=== PATIENT | female | born 1955 | race Caucasian/White ===

== ENCOUNTER → 2016-09-11 06:36 | Day surgery (SDC) | payer OTHER ==
[~2016-09-11 06:36] MED LIST: Acetaminophen TAB* 325 MG ONE; Acetaminophen TAB* 325 MG PO PRN; Buffered Lidocaine 1% SYRIN* 3 ML/SYR SYRINGE INTRADERM ONE; Dexamethasone IV* 4 MG/ML 1 ML (4 MG) ONE; DiMENhydriNATE IV* 50 MG/ML VIAL IV PUSH PRN; Famotidine IV* 10 MG/ML 2 ML (20 mg) IV ONE; Famotidine IV* 10 MG/ML 2 ML (20 mg) ONE; HYDROmorphone* 1 MG/ML 1 ML SYR IV PRN; KETAMINE HCL* 50 MG/ML 10 ML VIAL ONE; Lidocaine 1% INJ* 10 MG/ML 30 ML SDV ONE; Lidocaine 2% PF* 5 ML VIAL ONE; Lidocaine 2.5%/Prilocain 2.5%* 5 GM TUBE ONE; Midazolam* 1 MG/ML 2 ML VIAL (2 MG) ONE; Ondansetron INJ* 2 MG/ML VIAL IV PRN; PROCHLORPERAZINE INJ 5 MG/ML 2 ML VIAL IV PRN; Propofol* 10 MG/ML 20 ML BTL IV PUSH ONE; ceFAZolin 2 GM PREMIX(*) 2 GM/50 ML BAG IVPB ONE; fentaNYL* 50 MCG/ML 2 ML VIAL (100 MCG VIAL) ONE
--- NOTE | 2016-09-11 09:06 | RAD ---
INDICATION: PowerPort catheter placement COMPARISON: None TECHNIQUE: An AP portable view obtained at 0845 hours is submitted. FINDINGS: Bones/Soft Tissues: There are no acute bony findings. There is a right-sided PowerPort catheter terminating in the superior vena cava. There is no pneumothorax Cardiomediastinal: The cardiomediastinal silhouette is normal. Lungs: There are no infiltrates. Pleura: There are no pleural effusions. Other: None IMPRESSION: RIGHT-SIDED CENTRAL TRANSCATHETER IN EXPECTED POSITION. NO PNEUMOTHORAX.
--- NOTE | 2016-09-11 09:07 | RAD ---
INDICATION: PowerPort catheter placement COMPARISON: None FINDINGS: 5.2 seconds of fluoroscopy were provided for the surgical department. Fluoroscopic spot imaging of the chest were obtained for operative control and show a normal course of the right-sided central venous catheter catheter. A follow-up chest x-ray is pending . CPT II Codes: 6045F (fluoro time doc)
[2016-09-11 09:25] VITALS: BP 126/74
--- NOTE | 2016-09-12 07:07 | OP ---
DATE OF OPERATION: 09/11/16 - [facility] DATE OF : 57 SURGEON: Joe Blank MD FORESTRY AND WILDLIFE MANAGER: None. ANESTHESIOLOGIST: Dr. Crowe. ANESTHESIA: LMAC anesthesia. PRE-OP DIAGNOSIS: Carcinoma of the breast. POST-OP DIAGNOSIS: Carcinoma of the breast. OPERATIVE PROCEDURE: Placement of right subclavian 8-Bel[place]ian PowerPort. DESCRIPTION OF PROCEDURE: The patient was supine on the operative table. After adequate intravenous sedation, compression stockings, Capo Hugger warmer, and intravenous antibiotics, the right chest and neck region were prepped with antiseptic and draped in a sterile fashion. Local infiltrative anesthesia was administered and approximately 3-cm incision was created on the right subclavian region. Inferior pocket was created. Subclavian venipuncture was carried out without difficulty. Guidewire was passed under fluoroscopic guidance. Catheter passed through the peel-away introducer, measured, and cut at 23 cm. It was attached to the port, which was sutured in the pocket and the pocket was then closed with 3-0 and 5-0 Polysorb followed by Steri-Strips. The port was accessed. There was good blood return. It was flushed with saline solution and heparinized solution and then covered with Tegaderm dressing. She tolerated the procedure well and was brought to Recovery in good condition. No complications. No drains. No pathologic specimens. Sponge and instrument counts correct. Estimated blood loss 10 mL. CC: Dr. Joe Blank; Dr. Maia Kelly* [id number]/[facility] #: [id number] MTDD
== END | disposition home or self-care (01) ==
LOC: OR 06:36
PROVIDERS: ATTEND Surgery
DX: C50.912 Malignant neoplasm of unspecified site of left female breast (principal)
CPT/HCPCS: 71010; 76000; A9270-GY; J0690; J1100; J1642; J2001; J2250; J2704; J3010

== ENCOUNTER 2017-01-11 09:41 | Observation (INO) | payer OTHER ==
--- NOTE | 2017-01-09 21:56 | HP ---
CC: Maia Kelly MD; Robert Cornell MD; Dr. Looney, [facility], [place], [place] * ADMISSION HISTORY AND PHYSICAL: DATE OF ADMISSION: 01/11/17 ATTENDING SURGEON: Joe Blank MD * (DICTATED BY TEE BANKS) CHIEF COMPLAINT: Left breast cancer. HISTORY OF PRESENT ILLNESS: This is a 61-year-old female with hypertension and past history of asthma who first noted discoloration that she attributed to bruising of the left breast in May 2016. This did not resolve or improve in succeeding months and she brought it to the attention of her new PCP in [place], [place], who immediately sent her for a mammogram and ultrasound. Those studies apparently confirmed the presence of a 4.9-cm lesion in the upper outer quadrant in the left breast as well as 2 enlarged axillary lymph nodes measuring up to 2.8 cm. Biopsy of the breast lesion and one of the axillary lymph nodes apparently did show a poorly differentiated ductal carcinoma (see separate outside report). Because she has family here in [place], she elected to seek further treatment here. She was seen by Dr. Maia Kelly on . Exam at that time showed diffuse erythema over three quarters of the left breast with 3 subcutaneous firm nodules in the lower breast as well as peau d' orange changes. There was also noted to be a hard fixed left axillary lymph node high in the axilla. Initial PET scan did show increased metabolic activity in both the left breast and axilla. In addition, there was a separate lesion with increased metabolic activity in the liver. This was apparently biopsied with biopsy being benign. She went on to complete neoadjuvant chemotherapy (Adriamycin/Cytoxan followed by Taxol). Her last dose of Taxol was on 12/18/16 by report. Her last counts have been good. She did have hair loss and some peripheral neuropathy, but has otherwise done well. The breast and axillary lymph nodes have responded quite remarkably to the point where on Dr. Blank's most recent exam, he is unable to feel any palpably enlarged axillary lymph nodes. Dr. Kelly and Dr. Blank have discussed with the patient the indications for surgery, the risks, benefits and alternatives. She understands the potential for breast reconstruction, but that has not been recommended at the present time and on the whole, she is uninterested. She would like to proceed as scheduled with left mastectomy with axillary lymph node dissection. She was given a booklet today in the office for postoperative exercises. She understands the potential risk for lymphedema. She has not yet been seen by Radiation Oncology, but that is scheduled for after her surgery. Repeat PET scan was performed on 01/03/17 showing resolution of the increased metabolic activity of the left axillary lymph node with size decreased from previous of 2.2 to current of 0.6 cm. The liver lesion also decreased in size from 1.7 cm to 1 cm with resolution of the hypermetabolic activity. PAST MEDICAL HISTORY: 1. Breast cancer (see above). 2. Hypertension. 3. Asthma (largely related to exposure to cats). PAST SURGICAL HISTORY: 1. [place] teeth extraction. 2. Port placement for chemotherapy, 09/11/16. CURRENT MEDICATIONS: 1. Enalapril 5 mg once daily. 2. Ibuprofen 200 mg once or twice daily p.r.n. 3. Vitamin D3 1000 IU once daily (the patient does not have a current prescription for a bronchodilator). 4. Clonazepam 0.5 mg q.h.s. and p.r.n. (currently uses only at bedtime). DRUG ALLERGIES: None known (she is allergic to cat dander). FAMILY HISTORY: Negative for breast or ovarian cancer. Also negative for anesthesia problems, bleeding or clotting disorders. SOCIAL HISTORY: The patient is . She has 1 grown daughter. She resides in the [facility], but has family here in [place] where she is receiving her current therapy. 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 She is a lifelong nonsmoker. She previously would have up to 3 beers per day, but since her diagnosis and treatment, she has not had any alcohol. She denies any other recreational drug use. REVIEW OF SYSTEMS: General: No recent constitutional symptoms or acute illnesses other than described in the HPI. She has had a net weight loss about 14 pounds since diagnosis, but this has stabilized. HEENT: She has had alopecia from her chemotherapy. No other problems reported. Cardiovascular: She had a baseline echo in August that was essentially normal. She has continued to have good exercise tolerance and no significant shortness of breath concurrent with her recent therapies. Respiratory: No recent exacerbations of her asthma. No other respiratory problems reported. GI: No problems reported. I did not specifically inquire about screening colonoscopy. : No problems reported. RADIOLOGY PHYSICIAN ASSISTANT: As above per HPI, I did not ask about most recent pelvic exam. Musculoskeletal: She has what appears to be a small left wrist ganglion, which is asymptomatic, but she is interested in having this removed at some later date. Integument: She has a longstanding subcutaneous lesion of the anterior abdominal wall mid epigastric region consistent with a sebaceous cyst, which has been asymptomatic. PHYSICAL EXAMINATION GENERAL: Well-nourished, well-developed female, in no acute distress. VITAL SIGNS: Height 66 inches, weight 172 pounds. Blood pressure 124/72, pulse 90, respirations 18. HEENT: Pupils are equal, round, and reactive. EOMs intact. No conjunctival pallor. Oropharynx: Teeth in good repair. No intraoral lesions. Mucous membranes are moist. NECK: She has prominent anterior cervical lymph nodes, which are nontender. No other palpable lymphadenopathy in the cervical or supraclavicular regions. The axillae were examined by Dr. Blank this past week. LUNGS: Clear to auscultation. No wheezes. HEART: Regular rate and rhythm. No murmur noted. BREASTS: Not reexamined today. ABDOMEN: Soft, nontender to palpation. No palpable masses or hepatosplenomegaly. GENITALIA: Not done. RECTAL: Not done. BACK: No spinous process or CVA tenderness. SKIN: Warm and dry. No suspicious rashes or lesions noted. There is a subcutaneous nodule palpable in the mid epigastrium with the central pore consistent with a sebaceous cyst. No other suspicious rashes or lesions. Breasts were not specifically examined today. EXTREMITIES: No edema. NEUROLOGICAL: Grossly intact. Specific exam not performed. IMPRESSION: Left breast cancer with axillary metastasis. PLAN: Left mastectomy with axillary lymph node dissection. TEE BANKS [id number]/[facility] #: [id number] MTDD
[~2017-01-11 09:41] MED LIST changes: -Acetaminophen TAB* 325 MG ONE; -Acetaminophen TAB* 325 MG PO PRN; +Buffered Lidocaine 0.9% SYRIN* 5 ML/SYR SYRINGE INTRADERM ONE; -Buffered Lidocaine 1% SYRIN* 3 ML/SYR SYRINGE INTRADERM ONE; -Dexamethasone IV* 4 MG/ML 1 ML (4 MG) ONE; -DiMENhydriNATE IV* 50 MG/ML VIAL IV PUSH PRN; -Famotidine IV* 10 MG/ML 2 ML (20 mg) ONE; -HYDROmorphone* 1 MG/ML 1 ML SYR IV PRN; -KETAMINE HCL* 50 MG/ML 10 ML VIAL ONE; -Lidocaine 1% INJ* 10 MG/ML 30 ML SDV ONE; -Lidocaine 2% PF* 5 ML VIAL ONE; -Lidocaine 2.5%/Prilocain 2.5%* 5 GM TUBE ONE; -Midazolam* 1 MG/ML 2 ML VIAL (2 MG) ONE; -Ondansetron INJ* 2 MG/ML VIAL IV PRN; -PROCHLORPERAZINE INJ 5 MG/ML 2 ML VIAL IV PRN; -Propofol* 10 MG/ML 20 ML BTL IV PUSH ONE; +Scopolamine 1.5 mg* PATCH TRANSDERM SCH; -ceFAZolin 2 GM PREMIX(*) 2 GM/50 ML BAG IVPB ONE; -fentaNYL* 50 MCG/ML 2 ML VIAL (100 MCG VIAL) ONE
[2017-01-11] MEDS ORDERED: Famotidine IV* 10 MG/ML 2 ML (20 mg) ONE (09:51)
[2017-01-11] MEDS ORDERED: Buffered Lidocaine 0.9% SYRIN* 5 ML/SYR SYRINGE ONE (09:52)
[2017-01-11] MEDS ORDERED: Scopolamine 1.5 mg* PATCH ONE (09:52)
[2017-01-11] MEDS ORDERED: ceFAZolin 2 GM PREMIX(*) 2 GM/50 ML BAG IVPB ONE (09:52)
[2017-01-11] MEDS ORDERED: Heparin VIAL(*) 5000 UNITS/ML VIAL (FIVE THOUSAND) ONE (09:53)
[2017-01-11] MEDS ORDERED: fentaNYL* 50 MCG/ML 2 ML VIAL (100 MCG VIAL) ONE ×2 (11:02→12:51)
[2017-01-11] MEDS ORDERED: Midazolam* 1 MG/ML 5 ML VIAL (5 MG) ONE (11:02)
[2017-01-11] MEDS ORDERED: Ketorolac INJ* 30 MG/ML 1 ML VIAL ONE (11:03)
[2017-01-11] MEDS ORDERED: Propofol* 10 MG/ML 20 ML BTL IV PUSH ONE (11:03)
[2017-01-11] MEDS ORDERED: Ondansetron INJ* 2 MG/ML VIAL ONE (11:03)
[2017-01-11] MEDS ORDERED: DiMENhydriNATE IV* 50 MG/ML VIAL ONE (11:03)
[2017-01-11] MEDS ORDERED: Lidocaine 2% PF * 5 ML VIAL ONE (11:03)
[2017-01-11] MEDS ORDERED: Dexamethasone IV* 4 MG/ML 1 ML (4 MG) ONE (11:03)
[2017-01-11] MEDS ORDERED: Methylene Blue 0.5 %* 50 MG/10 ML AMP IV ONE (11:44)
[2017-01-11] MEDS ORDERED: Bupivacaine 0.25% W/EPI* 50 ML VIAL ONE (11:44)
[2017-01-11] MEDS ORDERED: Acetaminophen TAB* 325 MG PO PRN ×2 (12:36→14:17)
[2017-01-11] MEDS ORDERED: oxyCODONE TAB* 5 MG TAB PO PRN (12:36)
[2017-01-11] MEDS ORDERED: DiMENhydriNATE IV* 50 MG/ML VIAL IV PUSH PRN (12:36)
[2017-01-11] MEDS ORDERED: HYDROmorphone* 1 MG/ML 1 ML SYR ONE (14:04)
--- NOTE | 2017-01-11 14:11 | PN ---
Progress Note - Progress Note Date of Service: 01/11/17 Note: Brief Operative Note: Preop Dx: Left Breast Cancer Postop Dx: same Procedure: Left Mastectomy w/ axillary dissection Anesthesia: GET Surgeon: Rosamaria Asst: TEE Charlton EBL: 50 ml Fluids: 1000 ml RL Drains: 1 KYLE to chest wall Specimen: Left Breast; Left axillary contents Findings: dictated
[2017-01-11] MEDS: HYDROmorphone* 1 MG/ML 1 ML SYR IV PRN ×2 (14:14→14:25)
[2017-01-11] MEDS ORDERED: oxyCODONE TAB* 5 MG TAB ONE (14:17)
[2017-01-11] MEDS ORDERED: Acetaminophen TAB* 325 MG ONE (14:17)
[2017-01-11] MEDS ORDERED: HYDROcodone/ACETAMIN 5-325 MG* 1 TAB PO PRN (14:19)
[2017-01-11] MEDS ORDERED: Morphine INJ* 10 MG/ML 1 ML SYRINGE IV PRN (14:19)
[2017-01-11] MEDS ORDERED: Ondansetron INJ* 2 MG/ML VIAL IV PRN (14:20)
[2017-01-11] MEDS ORDERED: clonazePAM TAB(*) 0.5 MG PO PRN (14:34)
[2017-01-11] MEDS: Ibuprofen TAB* 600 MG PO PRN (16:45)
[2017-01-11] MEDS: Heparin VIAL(*) 5000 UNITS/ML VIAL (FIVE THOUSAND) SUBCUT SCH (21:07)
[2017-01-11] MEDS: HYDROcodone/ACETAMIN 5-325 MG* 1 TAB PO PRN (21:08)
[2017-01-12] MEDS: Ibuprofen TAB* 600 MG PO PRN ×2 (00:15→07:22)
[2017-01-12] MEDS: HYDROcodone/ACETAMIN 5-325 MG* 1 TAB PO PRN ×2 (04:12→10:15)
[2017-01-12] MEDS: Heparin VIAL(*) 5000 UNITS/ML VIAL (FIVE THOUSAND) SUBCUT SCH (05:54)
[2017-01-12] MEDS ORDERED: Enalapril TAB* 5 MG PO SCH (09:00)
--- NOTE | 2017-01-12 11:45 | OP ---
CC: Dr. Blank; Dr. Maia Kelly; Dr. Robert Cornell OPERATIVE REPORT: DATE OF OPERATION: 01/11/17 DATE OF : 57 SURGEON: Dr. Blank. PUBLIC HEALTH STAFF NURSE: TEE Sanders ANESTHESIOLOGIST: Shirley Lehman MD ANESTHESIA: General anesthetic. PRE-OP DIAGNOSIS: Carcinoma of left breast. POST-OP DIAGNOSIS: Carcinoma of left breast. OPERATIVE PROCEDURE: Left mastectomy with axillary lymph node dissection. DESCRIPTION OF PROCEDURE: The patient was supine on the operative table. After adequate general an esthetic, compression stockings, Capo Hugger warmer, and intravenous antibiotics, the left chest and axillary region were prepped with antiseptic and draped in a sterile fashion. A left mastectomy in cision was mapped out to encompass the nipple-areolar complex and much of the edematous skin as well . The elliptical incision was created, inferior and superior flaps were created in the usual fashion using electrocautery, and the breast tissue was taken off the pectoralis muscle in the subfascial p danyell. It was marked with the suture for the axillary tail and sent in formalin for pathologic evalu ation. Axillary lymph node dissection was carried out in the usual fashion. Tissue was taken off t he axillary vein, off the chest wall, off the subscapularis. The long thoracic and thoracodorsal ne rves were readily identified and preserved and the intercostobrachial nerve was clipped and divided and were identified. Lymphatics were clipped. The specimen was removed en tash and sent in formal in for pathologic evaluation. Hemostasis was ensured using cautery or sutures where appropriate and the operative field was irrigated with warm saline solution. Free fluid was suctioned out. Hemost asis was again confirmed. A Jesus-Payan drain was placed through a lateral stab wound, looped zahraa n to the axilla, and up under the flaps. Flaps were closed over top with 3-0 Polysorb followed by s urgical juanjo. Prolene suture was used to secure the drain. Dressings were placed at the complet ion of the procedure. She tolerated the procedure well and was brought to Recovery in good conditio n. No complications. Drain was Jesus-Payan. Sponge and instrument counts correct. Estimated bl ood loss 50 mL. Specimen as above. [id number]/[facility] #: [id number]
[2017-01-12 12:07] VITALS: BP 142/79
--- NOTE | 2017-01-13 13:25 | DS ---
CC: Dr. Looney, [place], [place]; Maia Kelly MD; Dr. Robert Cornell * DISCHARGE SUMMARY: DATE OF ADMISSION: 01/11/17 DATE OF DISCHARGE: 01/12/17 ATTENDING SURGEON: Joe Blank MD * (DICTATED BY TEE BANKS) HOSPITAL COURSE: Please refer to admission history and physical for admission details. The patient was taken to the operating room on 01/11/17 where she underwent left mastectomy with axillary dissection by Dr. Blank. She has had otherwise uneventful postoperative course. She is tolerating diet well and pain is controlled with oral medications as of the morning, postop day 1. She was seen this morning by Dr. Blank, who also examined her. There was a small amount of drainage on the dressing. Jesus-Payan drain had drained a total of 150 cc of serosanguineous drainage. The drain tubing was milked at bedside by Dr. Blank. IMPRESSION: Status post left mastectomy with axillary dissection (pathology pending). PLAN: Home today. Instructions regarding wound care and activity were reviewed. She will monitor drainage output and bring the record in with her at her followup which is scheduled for 01/15/17. TEE BANKS [id number]/[facility] #: [id number] MTDD
== END 2017-01-12 11:40 | disposition home or self-care (01) ==
LOC: OR 09:41 → SSU 15:20
PROVIDERS: ADMIT Surgery; ATTEND Surgery
PROC: 0HTU0ZZ Resection of Left Breast, Open Approach (ICD-10-PCS; principal; 2017-01-11 11:15)
PROC: 07T60ZZ Resection of Left Axillary Lymphatic, Open Approach (ICD-10-PCS; 2017-01-11 11:15)
DX: C50.912 Malignant neoplasm of unspecified site of left female breast (principal); C77.3 Secondary and unspecified malignant neoplasm of axilla and upper limb lymph nodes
CPT/HCPCS: 88307; 88309; A9270-GY; G0378; J0690; J1100; J1170; J1240; J1644; J1885; J2250; J2405; J2704; J3010

== ENCOUNTER 2018-01-27 14:11 | Inpatient (IN) | payer OTHER ==
[2018-01-27] MEDS ORDERED: NS 0.9% 1000 ML*IV.FLUID IV ONE (15:04)
[2018-01-27] MEDS ORDERED: metroNIDAZOLE IV 500 MG/100ML* 500 MG/100 ML BAG IVPB ONE (15:04)
[2018-01-27] MEDS ORDERED: cefTRIAXone(*) 1 GM in NS 0.9% 50 ML* 50 ML IVPB ONE (15:04)
--- NOTE | 2018-01-27 15:18 | ED ---
Complex/Multi-Sys Presentation - HPI Summary HPI Summary: This is scribe Priya Parekh documenting for attending Daysi Gary MD. This patient is a 62 year old F presenting to [facility] with a chief complaint of diarrhea and nausea for an unknown period of time, as patient is unable to recall. Pt becomes tearful with questions, and responds that she has "chemo brain". Reports general weakness and previous abdominal pain that is currently resolved. Brandon SOB, fever, headache, dizziness, and bloody stools. PMHx includes breast CA with metastasis to the liver dx in April of 2017. She is currently being treated with chemotherapy; last treatment was 01/25/18. Cancer is not being treated with radiation at this time. Pt's oncologist is Dr. Kelly. Pt stays with her brother when her is at work. Pt's brother brought pt to the ED. Pt has a port and grants access for staff to access her port as needed. I, Dr. Gary ,personally performed the services described in this documentation as scribed in my presence and it is both accurate and complete - History Of Current Complaint Chief Complaint: EDGeneral Time Seen by Provider: 01/27/18 14:57 Hx Obtained From: Patient, Family/It Application Support Analyst - present in ED, brother Hubert , brought pt to ED, Other: - Dr. Kelly by phone Hx From Patient Unobtainable Due To: Other - tearful, states "chemo brain" Onset/Duration: Gradual Onset, Other - unknown, patient unable to answer Timing: Constant Severity Currently: None Severity Initially: Moderate Location: Negative Aggravating Factor(s): nothing Alleviating Factor(s): nothing Associated Signs And Symptoms: Positive: Weakness, Nausea, Diarrhea, Abdominal Pain, Other - pt also reports falls at home. Negative: Headache, SOB, Fever Related History: Other - breast CA metastatic to lover - Allergies/Home Medications Allergies/Adverse Reactions: Allergies Allergy/AdvReac Type Severity Reaction Status Date / Time cat dander Allergy Severe Difficulty Verified 01/27/18 16:06 Breathing Home Medications: Home Medications Effexor CAP (NF) 25 mg PO DAILY 01/27/18 [History Confirmed 01/27/18] PMH/Surg Hx/FS Hx/Imm Hx Previously Healthy: No Endocrine/Hematology History: Reports: Hx Anemia Denies: Hx Diabetes Cardiovascular History: Reports: Hx Hypertension - controlled with medication Denies: Hx Pacemaker/ICD Respiratory History: Reports: Hx Asthma - avoids allergens GI History: Reports: Other GI Disorders - digestive problems from chemo- History: Denies: Hx Renal Disease Musculoskeletal History: Reports: Hx Arthritis - hands, mid back Sensory History: Reports: Hx Contacts or Glasses - has both, will wear glasses day of surgery Denies: Hx Hearing Aid Opthamlomology History: Reports: Hx Contacts or Glasses - has both, will wear glasses day of surgery Psychiatric History: Reports: Hx Anxiety - new r/t cancer Denies: Hx Panic Disorder - Cancer History Cancer Type, Location and Year: LT BREAST CA, METS TO LIVER: Dr. Kelly Hx Chemotherapy: Yes - last dose 01/27/18 Hx Radiation Therapy: Yes - MAR 2017 - Surgical History Surgery Procedure, Year, and Place: wisdom teeth removal 1973. powerport right subclavian 08/2016. LT MASTECTOMY & LYMPH NODE DISSECTION- 12/2016 Hx Anesthesia Reactions: Yes - possibility caused nausea Infectious Disease History: No Infectious Disease History: Denies: Traveled Outside the [place] in Last 30 Days - Family History Family History: Denies history of CA in family - Social History Lives: With Family Alcohol Use: None Substance Use Type: Reports: None Smoking Status (MU): Never Smoked Tobacco Review of Systems Positive: Fatigue, Other - falls at home . Negative: Fever Cardiovascular: Negative Respiratory: Negative Positive: Diarrhea, Nausea, Other - negative bloody stools . Negative: Abdominal Pain Positive: no symptoms reported Musculoskeletal: Negative Skin: Negative Neurological: Negative - dizziness Positive: Weakness. Negative: Headache Psychological: Normal All Other Systems Reviewed And Are Negative: Yes Physical Exam - Summary Physical Exam Summary: Appearance: ill-appearing, no pain distress, well-nourished, tearful, has difficulty concentrating to answer questions, s/p left masectomy Skin: Warm, color reflects adequate perfusion, dry, dry mucous membranes Head: Normal Head/Face inspection, atraumatic Eyes: Conjunctiva clear ENT: dry oral mucosa Neck: Supple, no nodes, no JVD Respiratory: Lungs clear, normal breath sounds, no respiratory distress Cardio: Tachycardic, regular rhythm, No murmur, pulses normal, brisk capillary refill Abdomen: Soft, nontender, no masses no guarding no rebound, no CVAT Bowel sounds: Present Musculoskeletal: Strength Intact/ROM intact, no calf tenderness, no edema, left mastectomy Psychological: tearful, poor concentration for questions pertaining to history Neuro: Alert, muscle tone normal, no focal deficit Triage Information Reviewed: Yes Vital Signs On Initial Exam: Initial Vitals Temp Pulse Resp BP Pulse Ox 98.5 F 146 20 104/80 100 01/27/18 14:24 01/27/18 14:24 01/27/18 14:24 01/27/18 14:24 01/27/18 14:24 Vital Signs Reviewed: Yes Diagnostics - Vital Signs Vital Signs Temp Pulse Resp BP Pulse Ox 01/27/18 14:24 98.5 F 146 20 104/80 100 - Laboratory Result Diagrams: 01/27/18 15:35 01/27/18 15:35 Lab Statement: Any lab studies that have been ordered have been reviewed, and results considered in the medical decision making process. - Radiology CXR Radiology Interpretation Completed By: Radiologist - NO EVIDENCE FOR ACUTE FINDING. ED Physician has reviewed this report. - EKG 1449 Cardiac Rate: Tachycardia - 142 BPM EKG Rhythm: Sinus Tachycardia ST Segment: Non-Specific Ectopy: None EKG Interpretation: nml AVIVCT, nml QTc, nml axis, ST-T wave changes, no acute changes EKG Comparison: Other - no prior to compare Re-Evaluation - Re-Evaluation First Re-Evaluation Time: 16:27 Comment: Informed patient of admission. Patient is agreeable. HR is 134. BP is 123 systolic. Patient now recalls diarrhea began on 01/25. Complex Multi-Symp Course/Dx Course Of Treatment: 62 year old F presenting to [facility] with a chief complaint of diarrhea and nausea for an unknown period of time, as patient is unable to recall. Reports general weakness and previous abdominal pain that is currently resolved. Brandon SOB, fever, headache, dizziness, and bloody stools. PMHx includes breast CA with metastasis to the liver dx in April of 2017. She is currently being treated with chemotherapy; last treatment was 01/25/18. After history, I went to the waiting room and spoke to the patient's and brother who agree to join her in her room. At 16:00, patient's nurse reports a temperature of 100.2. Aware of lactic acid of 3.6 and sodium of 126 at 16:03. A CXR is negative for acut findings. An EKG reveals, nml AVIVCT, nml QTc, nml axis , ST-T wave changes, no acute changes at a tachycardic rate of 142.Patient is given IV fluids, Zofran, Flagyl, and Ceftriaxone, and sepsis protocol was initiated for this pt who has metastatic cancer undergoing chemotherapy and meets SIRS criteria. Antibiotics initiated were for possible abdominal source with pt's report of diarrhea. However, pt has no diarrhea in the ED, and no definite source of infection is identified. Pt may just have failure to thrive and dehydration. At 1624, Dr. Kelly is informed of the patient's results, and recommends admission. While informing patient of admission, she is able to recall that diarrhea began on 01/25/18. At 17:05 Dr. Gould admits patient. Patient is agreeable. - Diagnoses Provider Diagnoses: Dehydration, Hyponatremia, SIRS (systemic inflammatory response syndrome), Metastatic breast cancer, Elevated lactic acid level, Anemia - Physician Notifications Discussed Care Of Patient With: Malika Gould - hospitalist Time Discussed With Above Provider: 17:05 Instructed by Provider To: Admit As Inpatient - Critical Care Time Critical Care Time: 30-74 min - evaluation of metastatic breast CA pt for sepsis , with SIRS criteria Discharge - Sign-Out/Discharge Documenting (check all that apply): Patient Departure - admit - Discharge Plan Condition: Guarded Disposition: ADMITTED TO [facility] - Billing Disposition and Condition Condition: GUARDED Disposition: Admitted to [facility]
[2018-01-27] MEDS ORDERED: Ondansetron INJ* 2 MG/ML VIAL IV ONE (15:49)
[2018-01-27 15:51] LABS: ABS Basophils 0 10^3/ul (0-0.2); ABS Eosinophils 0 10^3/ul (0-0.6); ABS Lymphocytes 0.5 10^3/ul (1.0-4.8); ABS Monocytes 0.3 10^3/ul (0-0.8); ABS Neutrophils 5.2 10^3/ul (1.5-7.7); ABS Nucleated RBC 0 10^3/ul; Eosinophil % 0.2 % (0-6); Hematocrit 29 % (35-47); Hemoglobin 9.6 g/dl (12.0-16.0); INR 1.38 (0.77-1.02); Lymphocyte % 7.5 % (25-47); Mean Corpuscular HGB Conc 34 g/dl (31-36); Mean Corpuscular Hemoglobin 33 pg (27-31); Mean Corpuscular Volume 98 fL (80-97); Mean Platelet Volume 9.2 um3 (7.4-10.4); Nucleated Red Blood Cells % 0; Platelet Count 215 10^3/ul (150-450); Red Blood Count 2.94 10^6/ul (4.00-5.40); Red Cell Distribution Width 22 % (10.5-15)
--- NOTE | 2018-01-27 16:12 | RAD ---
INDICATION: Metastatic breast cancer. COMPARISON: Comparison is made with a prior chest x-ray study from November 07, 2017. TECHNIQUE: A portable view of the chest was obtained. FINDINGS: The heart is within normal limits in size. There is a power port central venous catheter present on the right side. The catheter tip projects over the right atrium. The lungs are underinflated and grossly clear. No pleural effusion is seen. The patient is status post left axillary node dissection. IMPRESSION: NO EVIDENCE FOR ACUTE FINDING.
[2018-01-27] MEDS ORDERED: NS 0.9% 1000 ML* 1,000 ML IV ONE (17:32)
[2018-01-27] MEDS ORDERED: NS 0.9% 1000 ML* 1,000 ML IV SCH (17:45)
[2018-01-27] MEDS ORDERED: Ondansetron INJ* 2 MG/ML VIAL IV PRN (17:49)
[2018-01-27] MEDS ORDERED: Morphine INJ* 2 MG/ML 1 ML SYRINGE (TWO MG - NEW SYRINGE VERSION) IV PRN (17:52)
[2018-01-27] MEDS ORDERED: Scopolamine 1.5 mg* PATCH TRANSDERM SCH (18:00)
[2018-01-27] MEDS ORDERED: OLANzapine TAB*ODT* 5 MG PO SCH (18:00)
--- NOTE | 2018-01-27 20:03 | HP ---
CC: Dr. Lucrecia Looney* [facility] MEDICINE HISTORY AND PHYSICAL: DATE OF ADMISSION: 01/27/18 PRIMARY CARE PHYSICIAN: Dr. Lucrecia Looney. ATTENDING PHYSICIAN: Malika Kurtz MD* (dictation provided by Renee Soliz NP) . CHIEF COMPLAINT: Fall with diarrhea. HISTORY OF PRESENT ILLNESS: Ms. 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 Kelly who presents today to the hospital with concern for weakness, fall and diarrhea. Ms. Salmeron states that over the past few days she has been experiencing constipation. For that reason, she has been on multiple bowel motility agents. With this, last night, she developed diarrhea. She describes a few episodes overnight but becomes tearful during my interview and has a hard time answering questions in detail. She also notes that she has been very weak. She has had falls at home. She denies loss of consciousness with her falls but states that she slipped or felt weak. Thus far today, she has only had 1 liquid bowel movement. She says that at times she is nauseous and has some pain in her right upper quadrant, but denies any vomiting. I will note that she has been feeling poorly for quite some time and that she was treated for urinary tract infection/pyelonephritis with ciprofloxacin per the notes from Dr. Kelly. The patient states that she has elevated temperature every afternoon, which has been attributed to a tumor fever and this is unchanged. In the emergency room, Ms. Salmeron had vital signs, which showed that her heart rate was running as high as 140. She has temperature to 100.2. Her labs show a normal white blood cell count. Her ESR is 117. Her CRP is 281.88. She has elevated LFTs consistent with previous lab values. She has a hyponatremia, which is slightly worse than baseline. Her lactic acid is 3.6. She has had no diarrhea since being in the emergency room. Her chest x-ray shows no acute process. Her urinalysis is pending. PAST MEDICAL HISTORY: 1. Inflammatory breast cancer with metastasis to the liver. 2. Hypertension. 3. Depression. MEDICATIONS: Outpatient are: 1. Enalapril 5 mg p.o. q.a.m. 2. Ergocalciferol 2000 units p.o. q.p.m. 3. Ibuprofen 200 to 600 mg p.o. b.i.d. 4. Lactulose 30 mL p.o. daily p.r.n. 5. Ondansetron 8 mg p.o. q.6 hours p.r.n. 6. Clonazepam 0.5 mg p.o. t.i.d. p.r.n. 7. Effexor 25 mg p.o. daily. 8. Olanzapine 5 mg p.o. q.p.m. 9. Scopolamine 1.5 mg patch q.72 hours. ALLERGIES: To CAT DANDER. FAMILY HISTORY: No report of breast or ovarian cancer in the family. SOCIAL HISTORY: She is a lifelong smoker. No report of alcohol use. No report of drug use. She states her , Mirza, will be the healthcare proxy. REVIEW OF SYSTEMS: A 14-point review of systems was completed with Ms. Salmeron and all those not mentioned above were negative. PHYSICAL EXAMINATION GENERAL: Ms. Salmeron is lying in the bed. She is teary at times during my conversation, but she is in no acute distress. VITAL SIGNS: Temperature 100.2, heart rate 132, respiratory rate 24, O2 saturation 97% on room air, blood pressure 115/83. LUNGS: Clear to auscultation bilaterally with no accessory muscle use and good aeration. HEART: S1, S2. No murmur, rub or gallop and regular, but rapid. ABDOMEN: Soft. There is tenderness in the right upper quadrant. Bowel sounds are positive. EXTREMITIES: No cyanosis or edema. NEURO: She seems to be a little confused about details, but is able to provide a clear history of present illness. She is oriented x3. She moves all extremities equally. There is no facial asymmetry or focal weakness. Extraocular movements are intact. SKIN: Intact. DIAGNOSTIC STUDIES/LAB DATA: WBC 6.0, hemoglobin 9.6, hematocrit 29, platelet count 215,000. ESR 117. INR 1.38. Sodium 126, potassium 3.9, chloride 91, serum bicarbonate 27, BUN 21, creatinine 0.66, glucose 104, lactic acid 3.6. Total bilirubin 2.9, AST 234, ALT 127, alk phos 260. CRP 281.88. Chest x-ray shows no acute intrathoracic process. EKG shows what appears to be a sinus rhythm, heart rate about 140. ASSESSMENT AND PLAN: Ms. 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 In the emergency room, she was found to be tachycardic and tachypneic with concern for meeting systemic inflammatory response syndrome criteria and possible sepsis, although a source of infection is not yet identified. Our plans are for inpatient admission as I expect her length of stay to be greater than 2 days for the followin. Weakness, positive systemic inflammatory response syndrome criteria. I have not identified a focal source of infection though her urinalysis is pending. The chest x-ray is negative. Blood cultures have been obtained. She does report diarrhea, but only had 1 bout today thus far, therefore this does not seem significant especially in the setting of multiple bowel motility agents for constipation. I have spoken directly with Dr. Kelly and reviewed the possible need for antibiotics. She does not recommend antibiotics as no source has been identified. She is concerned that the patient is simply failing to thrive and is reaching end of life despite chemotherapy. Plan is for now to hydrate aggressively and to schaefer culture as has been done. Dr. Kelly and the team will follow up with the patient tomorrow. 2. Tachycardia. Plan to continue with IV fluids. She has had 2 L in the emergency room. I would like to administer a third liter and then continue at a rate depending on the effect this has on her heart rate. We will be rechecking lactic acid as well. 3. Hypertension. Plan to hold enalapril. Blood pressure is running in the 120s. 4. Depression/anxiety. Continue clonazepam, Effexor. 5. DVT prophylaxis with SCDs in the setting of anemia. 6. Code status is full code. This was reviewed with the patient at the bedside. TIME SPENT: Approximately 60 minutes were spent on the admission of this patient, more than half time was spent with the patient at the bedside reviewing the events leading up to this hospitalization, performing the physical examination, and reviewing my plan of care. RENEE SOLIZ, TRACY [id number]/[facility] #: [id number] ANTHONY
[2018-01-27] MEDS: clonazePAM TAB(*) 0.5 MG PO PRN (20:22)
[2018-01-28 05:39] LABS: Urine Appearance Clear; Urine Blood Negative (Negative); Urine Color Yellow; Urine Ketones Negative (Negative); Urine Protein Negative (Negative); Urine Specific Gravity 1.008 (1.010-1.030); Urine Urobilinogen Negative (Negative)
[2018-01-28 06:14] LABS: ABS Basophils 0 10^3/ul (0-0.2); ABS Eosinophils 0 10^3/ul (0-0.6); ABS Lymphocytes 0.4 10^3/ul (1.0-4.8); ABS Monocytes 0.2 10^3/ul (0-0.8); ABS Neutrophils 3.2 10^3/ul (1.5-7.7); ABS Nucleated RBC 0 10^3/ul; Eosinophil % 0.9 % (0-6); Hematocrit 24 % (35-47); Hemoglobin 8.2 g/dl (12.0-16.0); Lymphocyte % 10.3 % (25-47); Mean Corpuscular HGB Conc 34 g/dl (31-36); Mean Corpuscular Hemoglobin 34 pg (27-31); Mean Corpuscular Volume 98 fL (80-97); Mean Platelet Volume 8.9 um3 (7.4-10.4); Nucleated Red Blood Cells % 0; Platelet Count 171 10^3/ul (150-450); Red Blood Count 2.45 10^6/ul (4.00-5.40); Red Cell Distribution Width 22 % (10.5-15); White Blood Count 3.8 10^3/ul (3.5-10.8)
[2018-01-28 06:31] LABS: EGFR Non-African American 97.9 (>60)
[2018-01-28] MEDS: clonazePAM TAB(*) 0.5 MG PO PRN ×2 (07:16→13:29)
[2018-01-28] MEDS: CMC: Venlafaxine TAB (NF) 25 MG TAB PO SCH (08:55)
[2018-01-28] MEDS ORDERED: Ibuprofen TAB* 400 MG PO PRN (11:00)
--- NOTE | 2018-01-28 11:11 | PN ---
Progress Note - Progress Note Date of Service: 01/28/18 SOAP: Subjective: []Admitted yesterday following declining performance status with weakness and falls. Feeling OK, however very weak. Eating OK. Shoulders hurt when she uses them, no difficulty with AROM. Daughter, , and friend at bedside. Medications: Clonazepam (Klonopin Tab(*)) 0.5 mg PO TID PRN PRN Reason: ANXIETY Last Admin: 01/28/18 07:16 Dose: 0.5 mg Sodium Chloride (Ns 0.9% 1000 Ml*) 1,000 mls @ 75 mls/hr IV PER RATE [facility] Ibuprofen (Motrin Tab*) 400 mg PO Q6H PRN PRN Reason: PAIN Morphine Sulfate (Morphine Inj ((Syringe))*) 2 mg IV Q2H PRN PRN Reason: PAIN Ondansetron HCl (Zofran Inj*) 4 mg IV Q6H PRN PRN Reason: NAUSEA Last Admin: 01/27/18 20:24 Dose: 4 mg Scopolamine (Transderm-Scop 1.5 Mg Patch*) 1 patch TRANSDERM Q72H [facility] Last Admin: 01/27/18 20:40 Dose: 1 patch Venlafaxine HCl (Effexor Tab (Nf)) 25 mg PO DAILY [facility] Last Admin: 01/28/18 08:55 Dose: 25 mg Objective: [] Vital Signs Temp Pulse Resp BP Pulse Ox 97.3 F 111 18 115/70 97 01/28/18 07:50 01/28/18 07:50 01/28/18 09:31 01/28/18 07:50 01/28/18 08:00 A&Ox3, involved in plan of care, neuro grossly non-focal ROSEN, good strength= bilat., resting in bed comfortably HRR, tele with ST Resp even and non-labored without audible wheeze or rhonchi +2 edema bilat. LE Liver enlarged Laboratory Results - last 24 hr 01/27/18 01/27/18 01/27/18 15:35 15:35 15:35 WBC 6.0 RBC 2.94 L Hgb 9.6 L Hct 29 L MCV 98 H MCH 33 H MCHC 34 RDW 22 H Plt Count 215 MPV 9.2 Neut % (Auto) 86.9 H Lymph % (Auto) 7.5 L [place] % (Auto) 5.1 Eos % (Auto) 0.2 Baso % (Auto) 0.3 Absolute Neuts (auto) 5.2 Absolute Lymphs (auto) 0.5 L Absolute Monos (auto) 0.3 Absolute Eos (auto) 0 Absolute Basos (auto) 0 Absolute Nucleated RBC 0 Nucleated RBC % 0 ESR 117 H INR (Anticoag Therapy) 1.38 H APTT 30.7 Sodium 126 L Potassium 3.9 Chloride 91 L Carbon Dioxide 27 Anion Gap 8 BUN 21 Creatinine 0.66 Est GFR ( Amer) 110.2 Est GFR (Non-Af Amer) 91.0 BUN/Creatinine Ratio 31.8 H Glucose 104 H Lactic Acid Calcium 10.1 Total Bilirubin 2.90 H AST 234 H ALT 127 H Alkaline Phosphatase 260 H Total Creatine Kinase 146 Troponin I 0.03 C-Reactive Protein 281.88 H B-Natriuretic Peptide Total Protein 6.3 L Albumin 2.7 L Globulin 3.6 Albumin/Globulin Ratio 0.8 L Prealbumin Urine Color Urine Appearance Urine pH Ur Specific [place] Urine Protein Urine Ketones Urine Blood Urine Nitrate Urine Bilirubin Urine Urobilinogen Ur Leukocyte Esterase Urine Glucose 01/27/18 01/27/18 01/28/18 15:35 15:35 04:15 WBC RBC Hgb Hct MCV MCH MCHC RDW Plt Count MPV Neut % (Auto) Lymph % (Auto) [place] % (Auto) Eos % (Auto) Baso % (Auto) Absolute Neuts (auto) Absolute Lymphs (auto) Absolute Monos (auto) Absolute Eos (auto) Absolute Basos (auto) Absolute Nucleated RBC Nucleated RBC % ESR INR (Anticoag Therapy) APTT Sodium Potassium Chloride Carbon Dioxide Anion Gap BUN Creatinine Est GFR ( Amer) Est GFR (Non-Af Amer) BUN/Creatinine Ratio Glucose Lactic Acid 3.6 H* Calcium Total Bilirubin AST ALT Alkaline Phosphatase Total Creatine Kinase Troponin I C-Reactive Protein B-Natriuretic Peptide 76 Total Protein Albumin Globulin Albumin/Globulin Ratio Prealbumin Urine Color Yellow Urine Appearance Clear Urine pH 6.0 Ur Specific [place] 1.008 L Urine Protein Negative Urine Ketones Negative Urine Blood Negative Urine Nitrate Negative Urine Bilirubin Negative Urine Urobilinogen Negative Ur Leukocyte Esterase Negative Urine Glucose Negative 01/28/18 01/28/18 01/28/18 05:57 05:57 05:57 WBC 3.8 RBC 2.45 L Hgb 8.2 L Hct 24 L MCV 98 H MCH 34 H MCHC 34 RDW 22 H Plt Count 171 MPV 8.9 Neut % (Auto) 83.5 H Lymph % (Auto) 10.3 L [place] % (Auto) 4.8 Eos % (Auto) 0.9 Baso % (Auto) 0.5 Absolute Neuts (auto) 3.2 Absolute Lymphs (auto) 0.4 L Absolute Monos (auto) 0.2 Absolute Eos (auto) 0 Absolute Basos (auto) 0 Absolute Nucleated RBC 0 Nucleated RBC % 0 ESR INR (Anticoag Therapy) APTT Sodium 131 L Potassium 3.8 Chloride 101 Carbon Dioxide 26 Anion Gap 4 BUN 18 Creatinine 0.62 Est GFR ( Amer) 118.4 Est GFR (Non-Af Amer) 97.9 BUN/Creatinine Ratio 29.0 H Glucose 80 Lactic Acid 1.6 Calcium 8.9 Total Bilirubin 2.60 H AST 126 H ALT 83 H Alkaline Phosphatase 222 H Total Creatine Kinase Troponin I C-Reactive Protein B-Natriuretic Peptide Total Protein 5.3 L Albumin 2.2 L Globulin 3.1 Albumin/Globulin Ratio 0.7 L Prealbumin < 3 L Urine Color Urine Appearance Urine pH Ur Specific [place] Urine Protein Urine Ketones Urine Blood Urine Nitrate Urine Bilirubin Urine Urobilinogen Ur Leukocyte Esterase Urine Glucose Assessment: []62 yo female with advanced inflammatory breast cancer admitted with dehydration and unfortunately overall decline. I am very concerned that this indicates the beginning of her decline as she has essentially chemo refractory disease and now marked protein-caloric malnutrition. Discussed with her and family that I believe her prognosis is now limited to months and that even despite treatment she will ultimately of this disease, even with treatment I suspect there will not be any overall survival benefit and I have recommended she consider hospice. Plan: []1. Breast Cancer, end stage: Social work consult - Hospice Consult, will likely need a 2. Severe Protein-caloric Malnutrition: likely partial cause of falls - cont. diet as tolerated - PT eval. for fall prevention in future and consideration for assist device 3. Recurrent fevers: felt to be tumor fevers - Elevated inflammatory markers 2/2 liver failure and overall decline, cont. to hold abx. 4. Tachycardia: stable and will d/c tele Dispo: Inpt. for cont.'d hydration and d/c planning with likely hospice and potential SNF >40 min spent with >50% face to face counseling
[2018-01-28] MEDS: NS 0.9% 1000 ML* 1,000 ML IV SCH (14:54)
[2018-01-29] MEDS: NS 0.9% 1000 ML* 1,000 ML IV SCH ×2 (04:42→18:27)
[2018-01-29] MEDS: CMC: Venlafaxine TAB (NF) 25 MG TAB PO SCH (08:44)
--- NOTE | 2018-01-29 15:07 | CONSULT ---
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 She was recently treated for UTI with pyelonephritis as well. She has beenhaving daily febrile episodes attributed to her malignancy. On admission she had elevated LFTs with bilirubin 2.9, CRP 282, and poor nutritional status with albumin of 2.2 and prealbumin <3. She has been living in [facility] with her brother for the last year to receive oncology services here, although her home has been in [place], [place]. Lab Values: Abnormal Lab Results 01/28/18 05:57 CA 15-3 Antigen 85 H Laboratory Last Values WBC 3.8 10^3/ul (3.5-10.8) 01/28/18 05:57 RBC 2.45 10^6/ul (4.00-5.40) L 01/28/18 05:57 Hgb 8.2 g/dl (12.0-16.0) L 01/28/18 05:57 Hct 24 % (35-47) L 01/28/18 05:57 MCV 98 fL (80-97) H 01/28/18 05:57 MCH 34 pg (27-31) H 01/28/18 05:57 MCHC 34 g/dl (31-36) 01/28/18 05:57 RDW 22 % (10.5-15) H 01/28/18 05:57 Plt Count 171 10^3/ul (150-450) 01/28/18 05:57 MPV 8.9 um3 (7.4-10.4) 01/28/18 05:57 Neut % (Auto) 83.5 % (38-83) H 01/28/18 05:57 Lymph % (Auto) 10.3 % (25-47) L 01/28/18 05:57 [place] % (Auto) 4.8 % (0-7) 01/28/18 05:57 Eos % (Auto) 0.9 % (0-6) 01/28/18 05:57 Baso % (Auto) 0.5 % (0-2) 01/28/18 05:57 Absolute Neuts (auto) 3.2 10^3/ul (1.5-7.7) 01/28/18 05:57 Absolute Lymphs (auto) 0.4 10^3/ul (1.0-4.8) L 01/28/18 05:57 Absolute Monos (auto) 0.2 10^3/ul (0-0.8) 01/28/18 05:57 Absolute Eos (auto) 0 10^3/ul (0-0.6) 01/28/18 05:57 Absolute Basos (auto) 0 10^3/ul (0-0.2) 01/28/18 05:57 Absolute Nucleated RBC 0 10^3/ul 01/28/18 05:57 Nucleated RBC % 0 01/28/18 05:57 ESR 117 mm/Hr (0-30) H 01/27/18 15:35 INR (Anticoag Therapy) 1.38 (0.77-1.02) H 01/27/18 15:35 APTT 30.7 seconds (26.0-36.3) 01/27/18 15:35 Sodium 131 mmol/L (135-145) L 01/28/18 05:57 Potassium 3.8 mmol/L (3.5-5.0) 01/28/18 05:57 Chloride 101 mmol/L (101-111) 01/28/18 05:57 Carbon Dioxide 26 mmol/L (22-32) 01/28/18 05:57 Anion Gap 4 mmol/L (2-11) 01/28/18 05:57 BUN 18 mg/dL (6-24) 01/28/18 05:57 Creatinine 0.62 mg/dL (0.51-0.95) 01/28/18 05:57 Est GFR ( Amer) 118.4 (>60) 01/28/18 05:57 Est GFR (Non-Af Amer) 97.9 (>60) 01/28/18 05:57 BUN/Creatinine Ratio 29.0 (8-20) H 01/28/18 05:57 Glucose 80 mg/dL (70-100) 01/28/18 05:57 Lactic Acid 1.6 mmol/L (0.5-2.0) 01/28/18 05:57 Calcium 8.9 mg/dL (8.6-10.3) 01/28/18 05:57 Total Bilirubin 2.60 mg/dL (0.2-1.0) H 01/28/18 05:57 AST 126 U/L (13-39) H 01/28/18 05:57 ALT 83 U/L (7-52) H 01/28/18 05:57 Alkaline Phosphatase 222 U/L (34-104) H 01/28/18 05:57 Total Creatine Kinase 146 U/L (10-223) 01/27/18 15:35 Troponin I 0.03 ng/mL (<0.04) 01/27/18 15:35 C-Reactive Protein 281.88 mg/L (<8.01) H 01/27/18 15:35 B-Natriuretic Peptide 76 pg/mL (-100) 01/27/18 15:35 Total Protein 5.3 g/dL (6.4-8.9) L 01/28/18 05:57 Albumin 2.2 g/dL (3.2-5.2) L 01/28/18 05:57 Globulin 3.1 g/dL (2-4) 01/28/18 05:57 Albumin/Globulin Ratio 0.7 (1-3) L 01/28/18 05:57 Prealbumin < 3 mg/dL (18-38) L 01/28/18 05:57 CA 15-3 Antigen 85 U/mL (<30) H 01/28/18 05:57 Urine Color Yellow 01/28/18 04:15 Urine Appearance Clear 01/28/18 04:15 Urine pH 6.0 (5-9) 01/28/18 04:15 Ur Specific [place] 1.008 (1.010-1.030) L 01/28/18 04:15 Urine Protein Negative (Negative) 01/28/18 04:15 Urine Ketones Negative (Negative) 01/28/18 04:15 Urine Blood Negative (Negative) 01/28/18 04:15 Urine Nitrate Negative (Negative) 01/28/18 04:15 Urine Bilirubin Negative (Negative) 01/28/18 04:15 Urine Urobilinogen Negative (Negative) 01/28/18 04:15 Ur Leukocyte Esterase Negative (Negative) 01/28/18 04:15 Urine Glucose Negative (Negative) 01/28/18 04:15 - Objective Active Medications: Clonazepam (Klonopin Tab(*)) 0.5 mg PO TID PRN PRN Reason: ANXIETY Last Admin: 01/28/18 13:29 Dose: 0.5 mg Sodium Chloride (Ns 0.9% 1000 Ml*) 1,000 mls @ 75 mls/hr IV PER RATE [facility] Last Admin: 01/29/18 04:42 Dose: 75 mls/hr Ibuprofen (Motrin Tab*) 400 mg PO Q6H PRN PRN Reason: PAIN Morphine Sulfate (Morphine Inj ((Syringe))*) 2 mg IV Q2H PRN PRN Reason: PAIN Ondansetron HCl (Zofran Inj*) 4 mg IV Q6H PRN PRN Reason: NAUSEA Last Admin: 01/27/18 20:24 Dose: 4 mg Scopolamine (Transderm-Scop 1.5 Mg Patch*) 1 patch TRANSDERM Q72H [facility] Last Admin: 01/27/18 20:40 Dose: 1 patch Venlafaxine HCl (Effexor Tab (Nf)) 25 mg PO DAILY [facility] Last Admin: 01/29/18 08:44 Dose: 25 mg Vital Signs: Vital Signs: Temp Pulse Resp BP Pulse Ox 97.8 F 100 18 116/66 98 01/29/18 12:30 01/29/18 12:30 01/29/18 12:30 01/29/18 12:30 01/29/18 12:30 Patient Weight: Weight 157 lb 12.8 oz Intake and Output: Intake & Output 01/27/18 01/28/18 01/29/18 01/30/18 06:59 06:59 06:59 06:59 Intake Total 3609 1945 1330 Output Total 2100 4500 Balance 1509 -2555 1330 Weight 157 lb 12.8 oz Intake: IV Fluids 3125 630 NS (0.9%) 2128 1944 630 Oral 480 0 700 Output: Urine 2100 4500 Other: Estimated Void Small # Bowel Movements 0 0 # Voids 2 ADLs: Meal Record Start: 01/27/18 18: 34 Freq: DAILY@0900,1400,1800 Status: Active Protocol: Created 01/27/18 18:34 System (Rec: 01/27/18 18:34 System [id number]) Document 01/28/18 09:00 [id number] (Rec: 01/28/18 15:23 [id number] [id number]) Document 01/28/18 14:00 [id number] (Rec: 01/28/18 15:24 [id number] TELE-C05) Document 01/28/18 17:58 [id number] (Rec: 01/28/18 17:58 [id number] TELE-C03) Document 01/29/18 09:00 [id number] (Rec: 01/29/18 14:26 [id number] TELE-C10) Document 01/29/18 14:00 [id number] (Rec: 01/29/18 14:28 [id number] TELE-C10) Intake and Output Start: 01/27/18 14: 27 Freq: Status: Active Protocol: Created 01/27/18 14:27 System (Rec: 01/27/18 14:27 System [id number]) Intake and Output Start: 01/27/18 18: 34 Freq: DAILY@0600,1400,2200 Status: Active Protocol: Created 01/27/18 18:34 System (Rec: 01/27/18 18:34 System [id number]) Document 01/27/18 22:00 [id number] (Rec: 01/27/18 22:03 [id number] TELE-C08) Document 01/28/18 03:42 [id number] (Rec: 01/28/18 03:42 [id number] TELE-C05) Document 01/28/18 14:00 [id number] (Rec: 01/28/18 15:24 [id number] TELE-C05) Document 01/28/18 22:00 [id number] (Rec: 01/28/18 22:01 [id number] TELE-C10) Document 01/29/18 06:00 [id number] (Rec: 01/29/18 07:07 [id number] TELE-M03) Document 01/29/18 14:00 [id number] (Rec: 01/29/18 14:28 [id number] TELE-C10) Head: Symmetrical Eyes: No Scleral Icterus Ears/Nose/Mouth/Throat: Mucous Membranes Moist Neck: Trachea Midline Cardiovascular: No Edema Respiratory: Symmetrical Chest Expansion and Respiratory Effort Extremities: No Edema Neurological: Alert and Oriented x 3, - - Emotionally labile - Assessment Assessment: This patient has terminal disease. Her DNA testing through [facility] will not yield results for another 2 weeks. I spoke to Sailaja Cecilia, who said that even if she has a mutation that might allow for further treatment, she is not convinced there would be additional survival benefit for this patient. The patient agreed that she owuld not want CPR atempted and so her MOLST was updated. SHe also said she woul dlike to go to the [facility] if a bed was available, with the understanding that if she is found to be eligible for further life-prolonging treatment, she could sign off Hospice. She is currently not able to return to her brother's home and live there independently while he is at work. Carmen Lerner is going to check if her Medicaid application is for [facility], which would be necessary to cover the [facility]. If not, she could go to [facility] for [facility] pending Medicaid coverage. She is still hoping to get stronger to withstand further treatment, and does not feel prepared for . She qualifies for hospice services on the basis of metastatic breast cancer and a secondary diagnosis of severe malnutrition. Thanks for asking for consult. . - Plan Consult Plan (MU): Hospice - Time On Unit Date of Evaluation: 01/29/18 Hospice Consult Time in: 14:00 Hospice Consult Time Out: 15:00 Hospice Consult Time Total: 60 > 50% of Time Spend In Counseling or Coordinating Care: Yes
--- NOTE | 2018-01-29 17:20 | PN ---
Progress Note - Progress Note Date of Service: 01/29/18 SOAP: Subjective: [Feeling slightly better/stronger. Drinking well. Appetite ok, still poor.] Objective: [ Laboratory Results - last 24 hr 01/28/18 05:57 CA 15-3 Antigen 85 H Vital Signs Temp Pulse Resp BP Pulse Ox 98.4 F 105 16 142/77 98 01/29/18 16:10 01/29/18 16:10 01/29/18 16:28 01/29/18 16:10 01/29/18 16:10 Clonazepam (Klonopin Tab(*)) 0.5 mg PO TID PRN PRN Reason: ANXIETY Last Admin: 01/28/18 13:29 Dose: 0.5 mg Sodium Chloride (Ns 0.9% 1000 Ml*) 1,000 mls @ 75 mls/hr IV PER RATE [facility] Last Admin: 01/29/18 04:42 Dose: 75 mls/hr Ibuprofen (Motrin Tab*) 400 mg PO Q6H PRN PRN Reason: PAIN Last Admin: 01/29/18 16:17 Dose: 400 mg Morphine Sulfate (Morphine Inj ((Syringe))*) 2 mg IV Q2H PRN PRN Reason: PAIN Ondansetron HCl (Zofran Inj*) 4 mg IV Q6H PRN PRN Reason: NAUSEA Last Admin: 01/27/18 20:24 Dose: 4 mg Scopolamine (Transderm-Scop 1.5 Mg Patch*) 1 patch TRANSDERM Q72H [facility] Last Admin: 01/27/18 20:40 Dose: 1 patch Venlafaxine HCl (Effexor Tab (Nf)) 25 mg PO DAILY [facility] Last Admin: 01/29/18 08:44 Dose: 25 mg Exam: Gen: Chronically ill appearing 62 yo female in NAD, accompanied by family HEENT: no thrush CV: RRR, murmur noted Resp: CTA Abd: soft, nonTTP Ext: no edema ] Assessment: [62 yo female with metastatic BCA, refractory to multiple treatments admitted with weakness and dehydration. Patient is unsure of the direction that she would like to take her care. She seems hopeful she will be eligible for a clinical trial based on [employer] testing.] Plan: [1. Breast Cancer, end stage: - pt seems to be waffling with her goals of care - no further chemotherapy at this time - pending [employer] results with possible referral for clinical trial if performance status improves - Hospice eligible. 2. Severe Protein-caloric Malnutrition 3. Recurrent fevers: felt to be tumor fevers - no further abx at this time Dispo: cont inpt care. JAGDISH v Hospice]
[2018-01-30] MEDS: NS 0.9% 1000 ML* 1,000 ML IV SCH (09:21)
[2018-01-30] MEDS: clonazePAM TAB(*) 0.5 MG PO PRN ×2 (09:27→12:56)
[2018-01-30] MEDS: CMC: Venlafaxine TAB (NF) 25 MG TAB PO SCH (10:22)
[2018-01-30 11:22] LABS: ABS Basophils 0 10^3/ul (0-0.2); ABS Eosinophils 0 10^3/ul (0-0.6); ABS Lymphocytes 0.3 10^3/ul (1.0-4.8); ABS Monocytes 0.3 10^3/ul (0-0.8); ABS Neutrophils 3.3 10^3/ul (1.5-7.7); ABS Nucleated RBC 0 10^3/ul; Eosinophil % 1.1 % (0-6); Hematocrit 24 % (35-47); Lymphocyte % 8.5 % (25-47); Mean Corpuscular HGB Conc 34 g/dl (31-36); Mean Corpuscular Hemoglobin 33 pg (27-31); Mean Corpuscular Volume 99 fL (80-97); Nucleated Red Blood Cells % 0.1; Platelet Count 218 10^3/ul (150-450); Red Cell Distribution Width 22 % (10.5-15)
[2018-01-30 11:40] VITALS: BP 133/81
[2018-01-30 11:40] LABS: EGFR Non-African American 131.5 (>60)
--- NOTE | 2018-01-31 18:48 | DS ---
CC: Dr. Lucrecia Looney; Dr. Maia Kelly; Dr. Yuliet Neal with [facility]* DISCHARGE SUMMARY: DATE OF ADMISSION: 01/27/18 DATE OF DISCHARGE: 01/30/18 PRIMARY CARE PROVIDER: Dr. Lucrecia Looney. PRIMARY ONCOLOGIST: Dr. Maia Kelly. ATTENDING PHYSICIAN: Dr. Mario Thompson* (dictated by TEE Davison). CONSULTING PALLIATIVE CARE PHYSICIAN: Dr. Yuliet Neal. DISCHARGING PROVIDER: TEE Davison PRIMARY DISCHARGE DIAGNOSES: 1. Systemic inflammatory response syndrome secondary to malignancy. 2. Immunocompromised secondary to metastatic malignancy and subsequent chemotherapy. 3. Severe protein calorie malnutrition. 4. Acute liver failure. 5. Failure to thrive. 6. 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 DISCHARGE MEDICATIONS: 1. Clonazepam 0.5 mg p.o. 3 times daily as needed for anxiety. 2. Effexor 25 mg p.o. daily. 3. Vitamin D 2000 units p.o. daily. 4. Ibuprofen 300 to 600 mg q.h.s. daily. 5. Lactulose 30 mL p.o. daily as needed for constipation. 6. Zyprexa 5 mg p.o. nightly. 7. Ondansetron 8 mg p.o. q.6 hours as needed for nausea and vomiting. 8. Scopolamine patch 1 patch transdermal replaced every 3 days. HOSPITAL IMAGING: Chest x-ray shows no acute findings. HOSPITAL COURSE: This is a 62-year-old female with progressive inflammatory metastatic breast cancer, who has had significant progressive decline in her performance status who presented to the emergency department with complaints of severe diarrhea and progressive weakness with an associated fall at home without loss of consciousness. The patient had reported that she has been struggling with constipation and took significant amount of laxatives, at which point she developed significant diarrhea with progressive weakness and eventually resulted in a fall without associated loss of consciousness. Upon initial evaluation in the emergency department, the patient had a maximum temperature of 101.2 degrees Fahrenheit. She is tachycardic with heart rate into the mid 140s, mildly hypertensive with systolic pressures in the low 100s. Initial labs did not show leukocytosis, showed a very mild anemia, normal platelets. She is hyponatremic with a sodium of 126 mmol/L. Elevated lactic acid, is 3.6. Elevated total bilirubin 2.9, which is a new finding with increasing transaminases and significantly elevated C-reactive protein at 381.88. The patient has had intermittent fevers for the last several weeks which had been worked up on numerous occasions in the medical oncology office, eventually felt to most likely be result of her malignancy. The patient was initially empirically placed on IV antibiotics and blood cultures were taken, which were negative. Stool sample was gathered which was negative for significant pathogens. The patient was appropriately rehydrated and given other appropriate supportive care. The patient's most recent imaging showed progressive disease despite on at least third line chemotherapy. She had undergone a liver biopsy approximately 3 weeks prior with plans to send to [facility] for chemogenetic profiling and hopes to find a targetable mutation for further treatment. Unfortunately, the patient's performance status has continued to decline and she eventually had good insight into her current disease status realizing the refractory nature of the disease and likelihood of finding a targetable mutation that would be amenable to life prolonging therapy would be of low probability. The patient desired to pursue hospice services with the caveat that if her [facility] testing returned with a targetable mutation for which she would be eligible for a clinical trial pending her performance status at that time. She would be interested in participating, but otherwise understands there is no additional treatment options for her at this time. DISPOSITION AND FOLLOWUP PLAN: The patient is being discharged to hospice residence. Medications are as listed above. [employer] testing results are pending at the time of discharge. The patient is agreeable to hospice care, but again with the caveat as noted above, that she would like results from her [employer] testing which is due either later this week or early next week and would be interested in a clinical trial if deemed appropriate at that time. This will be communicated with Dr. Kelly, who will get her [employer] result at the hospice care facility either by phone or in person. TEE DAVISON [id number]/[facility] #: [id number] [facility]ITAL[facility]ila
== END 2018-01-30 13:20 | disposition hospice, inpatient (51) | DRG 422 ==
LOC: ED 14:11 → MEDTELE 18:02 → MED 01-29 15:45
PROVIDERS: ADMIT Internal Medicine; ATTEND Internal Medicine Hematology & Oncology
DX: E86.0 Dehydration (principal); R65.11 Systemic inflammatory response syndrome (SIRS) of non-infectious origin with acute organ dysfunction; K72.00 Acute and subacute hepatic failure without coma; E43 Unspecified severe protein-calorie malnutrition; C78.7 Secondary malignant neoplasm of liver and intrahepatic bile duct; R62.7 Adult failure to thrive; C50.919 Malignant neoplasm of unspecified site of unspecified female breast; R53.1 Weakness; R50.81 Fever presenting with conditions classified elsewhere; J30.81 Allergic rhinitis due to animal (cat) (dog) hair and dander; Z66 Do not resuscitate; I10 Essential (primary) hypertension; F32.9 Major depressive disorder, single episode, unspecified; Z68.25 Body mass index [BMI] 25.0-25.9, adult; Z79.1 Long term (current) use of non-steroidal anti-inflammatories (NSAID); Z79.899 Other long term (current) drug therapy
CPT/HCPCS: 36415; 71045; 80053; 81003; 82272; 82550; 83605; 83880; 84134; 84484; 85025; 85610; 85652; 85730; 86140; 86300; 87040; 87045; 87046; 87077; 87328; 87329; 87899; 93005; 99232; 99233; 99239; 99285; A9270-GY; G8978-GP-CI; G8979-GP-CI; J0696; J2405; J3490